=== PATIENT | female | born 1955 | race Caucasian/White ===

== ENCOUNTER 2020-03-12 07:02 | Emergency (ER) | payer MEDICARE ==
[~2020-03-12] VITALS: Ht 165.1 cm; Wt 82.0 kg
[2020-03-12] MEDS ORDERED: proparacaine 0.5% ophthalmic drops 15ml EACHEYE ONE (07:40)
[2020-03-12] MEDS ORDERED: VIG0.5OS LEFTEYE (08:05)
[2020-03-12 08:43] VITALS: BP 141/83
== END 2020-03-12 08:44 | disposition home or self-care (01) ==
LOC: ER 07:03
DX: S05.02XA Injury of conjunctiva and corneal abrasion without foreign body, left eye, initial encounter (principal); Z79.899 Other long term (current) drug therapy; X58.XXXA Exposure to other specified factors, initial encounter; Y93.89 Activity, other specified; Y92.89 Other specified places as the place of occurrence of the external cause; Y99.8 Other external cause status
CPT/HCPCS: 99283

== ENCOUNTER 2020-12-30 15:24 | Observation (INO) | payer MEDICARE ==
[~2020-12-30] VITALS: Ht 167.6 cm; Wt 71.4 kg
[2020-12-30] MEDS ORDERED: normal saline 1000ML IV soln IVB ONE (15:45)
--- NOTE | 2020-12-30 15:46 | NUR ---
STROKE ALERT LEVEL [address] PEREZ.
[2020-12-30] MEDS ORDERED: iohexol 350MG/ML 100ml bottle IV ONE (15:51)
[2020-12-30 16:03] LABS: BASOPHILS # (AUTO) 0.1 X10'3 (0-0.2); BASOPHILS % (AUTO) 1.2 % (0-1); EOSINOPHILS # (AUTO) 0.2 X10'3 (0-0.9); EOSINOPHILS % (AUTO) 1.5 % (0-6); HEMATOCRIT 44.7 % (35.0-45.0); HEMOGLOBIN 14.6 g/dl (12.0-16.0); LYMPHOCYTES # (AUTO) 3.8 X10'3 (1.1-4.8); MEAN CORPUSCULAR HEMOGLOBIN 29.1 PG (27.0-31.0); MEAN CORPUSCULAR HGB CONC 32.8 g/dL (33.0-36.5); MEAN CORPUSCULAR VOLUME 88.9 FL (78-98); MEAN PLATELET VOLUME 7.7 FL (7.4-10.4); MONOCYTES # (AUTO) 0.9 X10'3 (0-0.9); MONOCYTES % (AUTO) 7.7 % (2-12); NEUTROPHILS # (AUTO) 6.2 X10'3 (1.8-7.7); NEUTROPHILS % (AUTO) 55.6 % (42-75); PLATELET COUNT 416 X10'3 (140-440); RED BLOOD COUNT 5.03 X10'6 (4.20-5.60); RED CELL DISTRIBUTION WIDTH 13.8 % (11.5-14.5); WHITE BLOOD COUNT 11.1 X10'3 (4.5-11.0)
--- NOTE | 2020-12-30 16:07 | NUR ---
PATIENT BACK FROM CT AT THIS TIME VIA POWER. STROKE RN CASIE AT BEDSIDE TO ASSESS PATIENT. HR 100, PER RN LEONARDO HR DECREASED TO 100 BPM AT APPROXIMATELY 1555.
[2020-12-30 16:14] LABS: PARTIAL THROMBOPLASTIN TIME 28 SECONDS (22-32)
[2020-12-30 16:21] LABS: ALANINE AMINOTRANSFERASE 35 U/L (12-78); ALBUMIN 4.3 G/DL (3.4-5.0); ALBUMIN/GLOBULIN RATIO 1.2 (1.1-1.5); ALKALINE PHOSPHATASE 86 IU/L (46-116); ANION GAP 12 (8-16); ASPARTATE AMINO TRANSFERASE 21 U/L (10-37); BILIRUBIN,TOTAL 0.4 MG/DL (0.1-1.0); BLOOD UREA NITROGEN 24 MG/DL (7-18); CALCIUM 9.9 MG/DL (8.5-10.1); CHLORIDE 102 MMOL/L (99-107); CREATININE 1.09 MG/DL (0.40-0.90); GLUCOSE 112 MG/DL (70-104); POTASSIUM 3.7 MMOL/L (3.5-5.1); SODIUM 141 MMOL/L (135-145); TOTAL CARBON DIOXIDE 27.3 MMOL/L (24-32); TOTAL PROTEIN 7.9 G/DL (6.4-8.2); eGFR 50 ML/MIN
[2020-12-30 16:26] LABS: CLARITY,URINE CLEAR (Clear); COLOR,URINE YELLOW (Yellow); GLUCOSE, URINE NEGATIVE (Neg); KETONES,URINE NEGATIVE (Neg); LEUKOCYTE ESTERASE ,URINE NEGATIVE (Neg); NITRITES, URINE NEGATIVE (Neg); OCCULT BLOOD,URINE NEGATIVE (Neg); PROTEIN,URINE NEGATIVE (Neg); UROBILINOGEN,URINE 0.2 E.U/dL (0.2-1.0)
[2020-12-30 16:27] LABS: UA COLLECTION TYPE VOIDED
[2020-12-30 16:41] LABS: URINE AMPHETAMINE SCREEN NEGATIVE (Neg); URINE BARBITUATE SCREEN NEGATIVE (Neg); URINE BENZODIAZEPINES SCREEN NEGATIVE (Neg); URINE CANNABINOID SCREEN NEGATIVE (Neg); URINE COCAINE SCREEN NEGATIVE (Neg); URINE METHADONE SCREEN NEGATIVE (Neg); URINE OPIATE SCREEN NEGATIVE (Neg); URINE PHENCYCLIDINE SCREEN NEGATIVE (Neg)
[2020-12-30] MEDS ORDERED: MULT-1085 PO (18:17)
--- NOTE | 2020-12-30 19:10 | NUR ---
HOSPITALIST AT BEDSIDE
[2020-12-30] MEDS ORDERED: mag hydrox/Alum hydrox/simeth 30ml oral suspension PO PRN (19:20)
[2020-12-30] MEDS ORDERED: acetaminophen 325mg tablet PO PRN (19:20)
[2020-12-30] MEDS ORDERED: ondansetron/PF 4mg/2ml inj IV PRN (19:20)
[2020-12-30] MEDS ORDERED: magnesium hydroxide 30ml (MOM) UD suspension PO PRN (19:20)
[2020-12-30 19:57] LABS: HEMOGLOBIN A1C 6.3 % (4.5-6.2)
[2020-12-30] MEDS: heparin, porcine 5000 units/ml vial SQ SCH (20:04)
[2020-12-30 21:30] VITALS: BP 138/73
[2020-12-30 22:00] VITALS: BP 135/83
--- NOTE | 2020-12-30 22:28 | NUR ---
VTE -pt. on heparin (prophylaxis). Addendum: 12/30/20 at 2235 by Neisha Bahena RN Amended: Links added.
[2020-12-31 02:00] VITALS: BP 110/71
[2020-12-31 06:00] VITALS: BP 121/77
[2020-12-31 06:06] LABS: BASOPHILS % (AUTO) 0.8 % (0-1); EOSINOPHILS # (AUTO) 0.2 X10'3 (0-0.9); EOSINOPHILS % (AUTO) 2.9 % (0-6); HEMATOCRIT 42.3 % (35.0-45.0); LYMPHOCYTES # (AUTO) 1.6 X10'3 (1.1-4.8); LYMPHOCYTES % (AUTO) 26.8 % (21-51); MEAN CORPUSCULAR HEMOGLOBIN 29.4 PG (27.0-31.0); MEAN CORPUSCULAR HGB CONC 33.1 g/dL (33.0-36.5); MEAN CORPUSCULAR VOLUME 88.9 FL (78-98); MEAN PLATELET VOLUME 7.4 FL (7.4-10.4); MONOCYTES # (AUTO) 0.5 X10'3 (0-0.9); MONOCYTES % (AUTO) 8.3 % (2-12); NEUTROPHILS # (AUTO) 3.6 X10'3 (1.8-7.7); NEUTROPHILS % (AUTO) 61.2 % (42-75); PLATELET COUNT 313 X10'3 (140-440); RED BLOOD COUNT 4.75 X10'6 (4.20-5.60); RED CELL DISTRIBUTION WIDTH 13.7 % (11.5-14.5); WHITE BLOOD COUNT 5.9 X10'3 (4.5-11.0)
[2020-12-31 06:25] LABS: ALANINE AMINOTRANSFERASE 35 U/L (12-78); ALBUMIN 3.5 G/DL (3.4-5.0); ALBUMIN/GLOBULIN RATIO 1.1 (1.1-1.5); ALKALINE PHOSPHATASE 72 IU/L (46-116); ANION GAP 6 (8-16); ASPARTATE AMINO TRANSFERASE 21 U/L (10-37); BILIRUBIN,TOTAL 0.6 MG/DL (0.1-1.0); BLOOD UREA NITROGEN 18 MG/DL (7-18); BUN/CREATININE RATIO 18.2 (6.6-38.0); CALCIUM 9.3 MG/DL (8.5-10.1); CHLORIDE 106 MMOL/L (99-107); CHOL/HDL RATIO 3.3 (0.00-4.99); CHOLESTEROL 240 MG/DL (0-200); CREATININE 0.99 MG/DL (0.40-0.90); GLUCOSE 99 MG/DL (70-104); HDL CHOLESTEROL 73 MG/DL (35-60); LDL CHOLESTEROL 146 MG/DL (50-100); POTASSIUM 4.1 MMOL/L (3.5-5.1); SODIUM 142 MMOL/L (135-145); TOTAL CARBON DIOXIDE 29.9 MMOL/L (24-32); TOTAL PROTEIN 6.8 G/DL (6.4-8.2); TRIGLYCERIDES 75 MG/DL (20-135); eGFR 56 ML/MIN
--- NOTE | 2020-12-31 06:28 | NUR ---
Patient in room [facility] 4011. I have received report from Neisha MCKEON and had the opportunity to ask questions and assume patient care.
[2020-12-31] MEDS: heparin, porcine 5000 units/ml vial SQ SCH (07:02)
[2020-12-31 10:10] VITALS: BP 119/68
[2020-12-31] MEDS ORDERED: ATOR20TA66 PO (11:39)
[2020-12-31] MEDS ORDERED: ASPI-1264 PO (11:39)
--- NOTE | 2020-12-31 13:58 | NUR ---
Pt discharged at 1350. Pt belongings sent with pt. IV removed tip intact, no complications. All questions reviewed/answered. Pt insisted on walking home. Pt stated she lived [address] from here. Charge nurse approved. Pt discharged in stable condition to home.
== END 2020-12-31 13:45 | disposition home or self-care (01) ==
LOC: ER 15:25 → ED HOLD 19:20 → ORTHO 4S 21:05
PROVIDERS: ADMIT Internal Medicine; ATTEND Internal Medicine
DX: G45.9 Transient cerebral ischemic attack, unspecified (principal); R42 Dizziness and giddiness; E78.5 Hyperlipidemia, unspecified; R00.0 Tachycardia, unspecified; Z86.16 Personal history of COVID-19
CPT/HCPCS: 36415; 70450; 70496; 70498; 70551; 71045; 72141; 80053; 80061; 80305; 81003; 82948; 83036; 84443; 85025; 85610; 85730; 86885; 86900; 86901; 87081; 93306; 96360; 96361; 96372; 99291; G0378; J1644; J7030; Q9967